=== PATIENT | male | born 1995 | race Caucasian/White ===

== ENCOUNTER 2017-07-25 00:42 | Observation (INO) | payer OTHER ==
[~2017-07-25] VITALS: Ht 190.5 cm; Wt 92.1 kg
--- NOTE | 2017-07-25 00:44 | ER Report ---
History and Physical Time Seen By MD: 00:43 HPI/ROS CHIEF COMPLAINT: Abdominal pain HISTORY OF PRESENT ILLNESS: Patient is a 21-year-old male with no significant or contributory past medical history presents to the emergency department with worsening left upper quadrant abdominal pain that began around 4 PM this afternoon. Patient denies any traumatic injury does report nausea without emesis or diarrhea. No known ill contacts. Patient has no prior surgical interventions of the abdomen. Her crampy that waxes and wanes in intensity but never completely resolves. Current pain level is 10 out of 10 in intensity without palliative or provoking features. Patient denies ever having similar episodes in the past. Reports having normal bowel movements. REVIEW OF SYSTEMS: Constitutional: No fever, no chills. Eyes: No discharge. ENT: No sore throat. Cardiovascular: No chest pain, no palpitations. Respiratory: No cough, no shortness of breath. Gastrointestinal: abdominal pain; nausea without vomiting Genitourinary: No hematuria. Musculoskeletal: No back pain. Skin: No rashes. Neurological: No headache. Allergies: Coded Allergies: No Known Drug Allergies (Unverified , 07/25/17) Home Meds No Active Prescriptions or Reported Meds Constitutional Vital Sign - Last 24 Hours 07/25/17 07/25/17 07/25/17 07/25/17 00:51 00:52 01:00 01:15 Temp 97.6 Pulse 91 88 Resp 22 B/P (MAP) 149/99 (116) 149/99 Pulse Ox 100 99 100 O2 Delivery Room Air 07/25/17 07/25/17 07/25/17 07/25/17 01:32 01:45 02:15 02:30 Pulse 76 74 B/P (MAP) 134/87 (103) 129/79 (96) Pulse Ox 95 97 96 07/25/17 02:58 B/P (MAP) 135/89 (104) Physical Exam General Appearance: The patient is alert, has no immediate need for airway protection and no signs of toxicity. Eyes: Pupils equal and round no pallor or injection. ENT, Mouth: Mucous membranes are moist. Respiratory: There are no retractions, lungs are clear to auscultation. Cardiovascular: Regular rate and rhythm. Gastrointestinal: Abdomen is soft and non tender, no masses, bowel sounds normal. Neurological: awake, alert, GCS-15 Skin: Warm and dry, no rashes. Musculoskeletal: Neck is supple non tender. Extremities are nontender, nonswollen and have full range of motion. Medical Decision Making Data Points Result Diagram: 07/25/17 0053 07/25/17 0053 Laboratory Hematology Test 07/25/17 00:48 07/25/17 00:53 Urine Color Yellow Urine Clarity Clear Urine pH 6.0 pH (4.8-9.5) Urine Specific [place] 1.019 Urine Protein Negative mg/dL (NEGATIVE) Urine Glucose (UA) Negative mg/dL (NEGATIVE) Urine Ketones Trace mg/dL (NEGATIVE) Urine Blood Small (NEGATIVE) Urine Nitrite Negative (NEGATIVE) Urine Bilirubin Negative (NEGATIVE) Urine Urobilinogen Negative mg/dL (0.2-1.9) Urine Leukocyte Esterase Negative (NEGATIVE) Urine RBC None /HPF (0-2/HPF) Urine WBC <1 /HPF (0-5/HPF) Urine Squamous Epithelial Cells None /LPF (</=FEW) Urine Bacteria Negative /HPF (NONE-FEW) Urine Mucus None /HPF (NONE-FEW) Red Blood Count 6.22 M/uL (4.00-5.60) Mean Corpuscular Volume 85.9 fL (80.0-96.0) Mean Corpuscular Hemoglobin 30.2 pg (26.0-33.0) Mean Corpuscular Hemoglobin Concent 35.2 g/dL (32.0-36.0) Red Cell Distribution Width 12.7 % (11.5-14.5) Mean Platelet Volume 7.7 fL (7.2-11.1) Neutrophils (%) (Auto) 72.8 % (39.4-72.5) Lymphocytes (%) (Auto) 17.7 % (17.6-49.6) Monocytes (%) (Auto) 8.2 % (4.1-12.4) Eosinophils (%) (Auto) 0.8 % (0.4-6.7) Basophils (%) (Auto) 0.5 % (0.3-1.4) Nucleated RBC Relative Count (auto) 0.0 /100WBC Neutrophils # (Auto) 13.7 K/uL (2.0-7.4) Lymphocytes # (Auto) 3.3 K/uL (1.3-3.6) Monocytes # (Auto) 1.5 K/uL (0.3-1.0) Eosinophils # (Auto) 0.2 K/uL (0.0-0.5) Basophils # (Auto) 0.1 K/uL (0.0-0.1) Nucleated RBC Absolute Count (auto) 0.01 K/uL Sodium Level 138 mmol/L (137-145) Potassium Level 3.4 mmol/L (3.5-5.0) Chloride Level 100 mmol/L (98-107) Carbon Dioxide Level 23 mmol/L (22-30) Blood Urea Nitrogen 17 mg/dl (9-21) Creatinine 1.00 mg/dl (0.66-1.25) Glomerular Filtration Rate Calc > 60.0 Random Glucose 129 mg/dl (75-110) Calcium Level 9.9 mg/dl (8.4-10.2) Total Bilirubin 1.0 mg/dl (0.2-1.3) Aspartate Amino Transf (AST/SGOT) 31 U/L (0-35) Alanine Aminotransferase (ALT/SGPT) 37 U/L (0-56) Alkaline Phosphatase 73 U/L (0-126) Total Protein 8.6 gm/dl (6.3-8.2) Albumin 4.9 g/dl (3.5-5.0) Lipase 51 U/L (23-300) Chemistry Test 07/25/17 00:48 07/25/17 00:53 Urine Color Yellow Urine Clarity Clear Urine pH 6.0 pH (4.8-9.5) Urine Specific [place] 1.019 Urine Protein Negative mg/dL (NEGATIVE) Urine Glucose (UA) Negative mg/dL (NEGATIVE) Urine Ketones Trace mg/dL (NEGATIVE) Urine Blood Small (NEGATIVE) Urine Nitrite Negative (NEGATIVE) Urine Bilirubin Negative (NEGATIVE) Urine Urobilinogen Negative mg/dL (0.2-1.9) Urine Leukocyte Esterase Negative (NEGATIVE) Urine RBC None /HPF (0-2/HPF) Urine WBC <1 /HPF (0-5/HPF) Urine Squamous Epithelial Cells None /LPF (</=FEW) Urine Bacteria Negative /HPF (NONE-FEW) Urine Mucus None /HPF (NONE-FEW) White Blood Count 18.8 k/uL (4.5-11.0) Red Blood Count 6.22 M/uL (4.00-5.60) Hemoglobin 18.8 g/dL (14.0-18.0) Hematocrit 53.4 % (42.0-52.0) Mean Corpuscular Volume 85.9 fL (80.0-96.0) Mean Corpuscular Hemoglobin 30.2 pg (26.0-33.0) Mean Corpuscular Hemoglobin Concent 35.2 g/dL (32.0-36.0) Red Cell Distribution Width 12.7 % (11.5-14.5) Platelet Count 298 K/uL (150-450) Mean Platelet Volume 7.7 fL (7.2-11.1) Neutrophils (%) (Auto) 72.8 % (39.4-72.5) Lymphocytes (%) (Auto) 17.7 % (17.6-49.6) Monocytes (%) (Auto) 8.2 % (4.1-12.4) Eosinophils (%) (Auto) 0.8 % (0.4-6.7) Basophils (%) (Auto) 0.5 % (0.3-1.4) Nucleated RBC Relative Count (auto) 0.0 /100WBC Neutrophils # (Auto) 13.7 K/uL (2.0-7.4) Lymphocytes # (Auto) 3.3 K/uL (1.3-3.6) Monocytes # (Auto) 1.5 K/uL (0.3-1.0) Eosinophils # (Auto) 0.2 K/uL (0.0-0.5) Basophils # (Auto) 0.1 K/uL (0.0-0.1) Nucleated RBC Absolute Count (auto) 0.01 K/uL Glomerular Filtration Rate Calc > 60.0 Calcium Level 9.9 mg/dl (8.4-10.2) Total Bilirubin 1.0 mg/dl (0.2-1.3) Aspartate Amino Transf (AST/SGOT) 31 U/L (0-35) Alanine Aminotransferase (ALT/SGPT) 37 U/L (0-56) Alkaline Phosphatase 73 U/L (0-126) Total Protein 8.6 gm/dl (6.3-8.2) Albumin 4.9 g/dl (3.5-5.0) Lipase 51 U/L (23-300) Urinalysis Test 07/25/17 00:48 Urine Color Yellow Urine Clarity Clear Urine pH 6.0 pH (4.8-9.5) Urine Specific [place] 1.019 Urine Protein Negative mg/dL (NEGATIVE) Urine Glucose (UA) Negative mg/dL (NEGATIVE) Urine Ketones Trace mg/dL (NEGATIVE) Urine Blood Small (NEGATIVE) Urine Nitrite Negative (NEGATIVE) Urine Bilirubin Negative (NEGATIVE) Urine Urobilinogen Negative mg/dL (0.2-1.9) Urine Leukocyte Esterase Negative (NEGATIVE) Urine RBC None /HPF (0-2/HPF) Urine WBC <1 /HPF (0-5/HPF) Urine Squamous Epithelial Cells None /LPF (</=FEW) Urine Bacteria Negative /HPF (NONE-FEW) Urine Mucus None /HPF (NONE-FEW) EKG/Imaging Imaging V: [id number] EXAM DATE: ORDERING PHYSICIAN: STEPAN NELSON TECHNOLOGIST: Location: [facility] Patient: Bertrand Kaplan : 1995 Visit/Account:[id number] Date of Sevice: 07/25/2017 ABDOMEN/PELVIS WITH CONTRAST COMPARISONS: None. ADDITIONAL PERTINENT HISTORY: Left upper quadrant pain TECHNIQUE: Multiple axial images were obtained from the lung bases through the lesser trochanters before and after the IV administration of IV contrast. One of the following dose optimization techniques was utilized in the performance of this exam: Automated exposure control; adjustment of the mA and/or kV according to the patient's size; or use of an iterative reconstruction technique. Specific details can be referenced in the facility's radiology CT exam operational policy. CONTRAST: 75 ml of Isovue-370 FINDINGS: Lung bases: Negative. Free air and free fluid: Small amount of free fluid within the pelvis. Liver: Negative. Spleen: Negative. Kidneys, ureters and urinary bladder: Negative. Adrenal glands: Negative. Pancreas: Negative. Gallbladder: Negative. Bowel and mesentery: There is an abnormal appearing appendix in the right lower quadrant with the appendix measuring up to 1.5 cm. The appendix is fluid-filled with multiple appendicoliths present. There is mild thickening of the wall with mild enhancement and mild soft tissue stranding about the midportion of the appendix compatible with acute appendicitis.. Pelvic contents: Negative Lymph node assessment: Negative. Retroperitoneum: Negative. Abdominal vasculature: Negative. Surrounding soft tissues: Negative. 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 Scattered intervertebral disc herniations involving the upper lumbar spine. No acute appearing bony abnormalities. IMPRESSION: 1. Findings of acute appendicitis with dilatation of the appendiceal lumen with appendicoliths present with mild thickening of the wall of the appendix and mild soft tissue stranding around the appendix. Results were discussed with STEPAN NELSON at 07/25/2017 2:31 AM. Report Dictated By: Edward Hardin MD at 07/25/2017 2:23 AM Report E-Signed By: Edward Hardin MD at 07/25/2017 2:31 AM WSN:[id number] ED Course/Re-evaluation Clinical Indication for ER IV: Hydration, IV Access ED Course 07/25/2017 1:50:50 am patient with fairly severe crampy left upper quadrant abdominal pain without radiation. No CVA tenderness or flank pain no radiation to the groin or to the testicle. Patient appears to be hyperventilating secondary to discomfort. Patient had been given 1 mg of IV Ativan along with 1 L normal saline. Patient reports that he is feeling sleepy and has no discomfort whatsoever. X-ray of the abdomen shows diffuse colonic stool and gas. No evidence of obstruction. White count is 18,000 which could represent de- margination secondary to pain however this could also represent an acute process. Plan this time will be to continue observation we will order a CT scan with IV contrast. Decision to Disposition Date: Jul 25, 2017 Decision to Disposition Time: 02:49 Depart Departure Latest Vital Signs Vital Signs Date Time Temp Pulse Resp B/P (MAP) Pulse Ox O2 Delivery O2 Flow Rate FiO2 07/25/17 02:58 135/89 (104) 07/25/17 02:30 74 96 07/25/17 00:52 97.6 22 Room Air Impression: Primary Impression: Acute appendicitis Condition: Improved Disposition: Admitted from ER (to Dr Marino) New Scripts No Active Prescriptions or Reported Meds Problem Qualifiers Primary Impression: Acute appendicitis Acute appendicitis type: unspecified acute appendicitis type Qualified Codes : K35.80 - Unspecified acute appendicitis STEPAN NELSON MD Jul 25, 2017 00:44
[2017-07-25] MEDS ORDERED: NS(*) 0.9% 1000 ML BAG 1,000 ML IV ONE (01:04)
[2017-07-25] MEDS ORDERED: LORazepam 1 MG TAB PO ONE ×2 (01:05)
[2017-07-25] MEDS ORDERED: ONDANSETRON 4 MG/2 ML VIAL IVP ONE (01:05)
[2017-07-25] MEDS ORDERED: LORazepam 2 MG/ML VIAL IVP ONE (01:05)
[2017-07-25 01:21] LABS: PLATELET COUNT, AUTOMATED 298 K/uL (150-450)
[2017-07-25] MEDS ORDERED: IOPAMIDOL 76% 75 ML INFUS BTL 75 ML ONE (01:40)
[2017-07-25] MEDS ORDERED: NS 0.9% 50 ML VIAL 50 ML ONE (01:40)
--- NOTE | 2017-07-25 01:54 | RADIOLOGY IMAGING REPORT ---
FACILITY: PATIENT NAME: Bertrand Kaplan : 1995 MR: [id number] V: [id number] EXAM DATE: ORDERING PHYSICIAN: STEPAN NELSON TECHNOLOGIST: [place] [facility] [place]: Bertrand Kaplan : 1995 Visit/Account:[id number] Date of Sevice: 07/25/2017 OBSTRUCTION SERIES: Indication: Lower quadrant abdominal pain. Technique: Supine and erect views of the abdomen and a frontal view of the chest were obtained. Comparison: None. Findings: There is a large amount of stool in the proximal colon. There is modest stool in the distal colon. There are no signs of obstruction. There is no evidence of free air. The skeletal and soft ti ssue structures appear unremarkable. The chest film demonstrates well-expanded and clear lungs. There is no evidence of parenchymal or ple ural abnormalities. The heart and mediastinal contours are within normal limits. IMPRESSION: There is a large amount of stool in the proximal colon. There is no evidence of obstructi on or free air. Report Dictated By: Magdy Acosta MD at 07/25/2017 1:46 AM Report E-Signed By: Magdy Acosta MD at 07/25/2017 1:49 AM WSN:[id number]
--- NOTE | 2017-07-25 02:36 | RADIOLOGY IMAGING REPORT ---
FACILITY: [facility] PATIENT NAME: Bertrand Kaplan : 1995 MR: [id number] V: [id number] EXAM DATE: ORDERING PHYSICIAN: STEPAN NELSON TECHNOLOGIST: Location: [facility] Patient: Bertrand Kaplan : 1995 Visit/Account:[id number] Date of Sevice: 07/25/2017 ABDOMEN/PELVIS WITH CONTRAST COMPARISONS: None. ADDITIONAL PERTINENT HISTORY: Left upper quadrant pain TECHNIQUE: Multiple axial images were obtained from the lung bases through the lesser trochanters bef ore and after the IV administration of IV contrast. One of the following dose optimization technique s was utilized in the performance of this exam: Automated exposure control; adjustment of the mA and/ or kV according to the patient's size; or use of an iterative reconstruction technique. Specific de tails can be referenced in the facility's radiology CT exam operational policy. CONTRAST: 75 ml of Isovue-370 FINDINGS: Lung bases: Negative. Free air and free fluid: Small amount of free fluid within the pelvis. Liver: Negative. Spleen: Negative. Kidneys, ureters and urinary bladder: Negative. Adrenal glands: Negative. Pancreas: Negative. Gallbladder: Negative. Bowel and mesentery: There is an abnormal appearing appendix in the right lower quadrant with the martin endix measuring up to 1.5 cm. The appendix is fluid-filled with multiple appendicoliths present. Ther e is mild thickening of the wall with mild enhancement and mild soft tissue stranding about the midpo rtion of the appendix compatible with acute appendicitis.. Pelvic contents: Negative Lymph node assessment: Negative. Retroperitoneum: Negative. Abdominal vasculature: Negative. Surrounding soft tissues: Negative. 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 Scattered intervertebral disc herniations involving the upper lumbar spine. No acute appeari ng bony abnormalities. IMPRESSION: 1. Findings of acute appendicitis with dilatation of the appendiceal lumen with appendicoliths presen t with mild thickening of the wall of the appendix and mild soft tissue stranding around the appendix . Results were discussed with STEPAN NELSON at 07/25/2017 2:31 AM. Report Dictated By: Edward Hardin MD at 07/25/2017 2:23 AM Report E-Signed By: Edward Hardin MD at 07/25/2017 2:31 AM WSN:[id number]
[2017-07-25] MEDS ORDERED: PIPERACILLIN/TAZO*3.375GM VIAL 3.375 GM in NS(*) 0.9% 100 ML ADDVANT BAG 100 ML IVPB ONE (02:45)
[2017-07-25] MEDS ORDERED: MORPHINE SULFATE 30 MG PCA IV PRN (02:48)
[2017-07-25] MEDS ORDERED: NALOXONE HCL 0.4 MG/ML VIAL IVP PRN (02:48)
[2017-07-25 03:24] VITALS: BP 131/75
[2017-07-25] MEDS ORDERED: ONDANSETRON 4 MG/2 ML VIAL IVP PRN ×2 (03:40→06:20)
[2017-07-25] MEDS ORDERED: D5 1/2 NS(*) 1000 ML BAG 1,000 ML IV PRN (03:40)
[2017-07-25] MEDS ORDERED: FAMOTIDINE(*) 20MG/50ML PREMIX 50 ML IVPB ONE (05:20)
[2017-07-25] MEDS ORDERED: NORMOSOL R SOLN(*) 1000 ML BAG 1,000 ML IV ONE (05:20)
--- NOTE | 2017-07-25 05:21 | General Surgery 1 H&P ---
History of Present Illness Chief Complaint abdominal pain History of Present Illness 21 yo healthy male presents with one day history of abdominal pain. it was mainly in the left upper quadrant. it was quite severe. no nausea or emesis. no change in bms no urinary complaints. sen in ed wbc elevated to 18,000. ct suggest appendicitis. pain now in right lower quadrant. History Other Past Surgeries: wisdom teeth Home Meds No Active Prescriptions or Reported Meds Allergies: Coded Allergies: No Known Drug Allergies (Unverified , 07/25/17) Family History: Patient reports no known family medical history. Review of Systems History of Hypertension?: No History of Diabetes?: No History of DVT?: No Obstructive Sleep Apnea?: No History of Liver Disease?: No History of Kidney Disease?: No Respiratory: Denies Shortness of Breath, Denies Other Cardiovascular: Denies Chest Pain, Denies Other : Denies Dysuria, Denies Other Exam Vital Signs Date Time Temp Pulse Resp B/P (MAP) Pulse Ox O2 Delivery O2 Flow Rate FiO2 07/25/17 03:28 93 Nasal Cannula 1.0 07/25/17 03:24 98.6 81 16 131/75 (93) General Appearance: Alert, Awake, No Acute Distress Cardiovascular: Regular Rate and Rhythm Respiratory: Clear to Auscultation GI: Other (soft tender in the right lower quadrant to deep palpation) Medical Decision Making Data Points Result Diagram: 07/25/17 0053 07/25/17 0053 Assessment and Plan Problems: (1) Acute appendicitis Status: Acute Assessment & Plan: laparoscopic appendectomy, discussed the procedure complications and recovery. Copies to: NIKKI MENA MD Venous Thromboembolism Antithrombotics Is Pt On Any Antithrombotics?: No Problem Qualifiers (1) Acute appendicitis: Acute appendicitis type: unspecified acute appendicitis type Qualified Codes: K35.80 - Unspecified acute appendicitis NIKKI MENA MD Jul 25, 2017 05:21
[2017-07-25] MEDS ORDERED: fentaNYL CITR 100 MCG/2 ML AMP ONE (05:46)
[2017-07-25] MEDS ORDERED: PROPOFOL EMUL(*) 10MG/ML 20 ML 20 ML ONE (05:46)
[2017-07-25] MEDS ORDERED: ONDANSETRON 4 MG/2 ML VIAL ONE (05:46)
[2017-07-25] MEDS ORDERED: METOCLOPRAMIDE 10 MG/2 ML SDV ONE (05:46)
[2017-07-25] MEDS ORDERED: LIDOCAINE MPF 1% 5 ML VIAL ONE (05:46)
[2017-07-25] MEDS ORDERED: DEXAMETHASONE SOD 4 MG/ML VIAL ONE (05:46)
[2017-07-25] MEDS ORDERED: SUGAMMADEX SOD 200 MG/2 ML SDV ONE (05:49)
[2017-07-25] MEDS ORDERED: NS(*) 0.9% 1000 ML BAG 1,000 ML IV PRN (06:19)
--- NOTE | 2017-07-25 06:19 | Post Operative Progress Note ---
Post Operative Progress Note Date: Jul 25, 2017 Time: 06:56 Surgeon: rea Anesthesia: dr damon Pre-Op Diagnosis: appendicitis Post-Op Diagnosis: same Procedure(s): NIKKI Wallace MD Jul 25, 2017 06:19
[2017-07-25] MEDS ORDERED: APAP/HYDROCODONE 325/5 TAB PO PRN (06:20)
[2017-07-25] MEDS ORDERED: ROCURONIUM BROM 10 MG/ML 5 ML ONE (06:30)
[2017-07-25] MEDS ORDERED: KETOROLAC 30 MG/ML VIAL ONE (06:45)
[2017-07-25 07:56] VITALS: BP 122/62
[2017-07-25] MEDS ORDERED: PIPERACILLIN/TAZO*3.375GM VIAL 3.375 GM in NS(*) 0.9% 100 ML ADDVANT BAG 100 ML IVPB SCH (09:00)
[2017-07-25 10:43] VITALS: Ht 190.5 cm; Wt 92.1 kg
[2017-07-25] MEDS ORDERED: KET10 PO (10:50)
[2017-07-25] MEDS ORDERED: HYDR-4309 PO (10:50)
--- NOTE | 2017-07-25 10:52 | Short(Outpt) Discharge Summary ---
Discharge Summary Reason for Hosp/Final Diag: (1) Acute appendicitis Status: Acute Hospital Course & Plan: laparoscopic appendectomy, discussed the procedure complications and recovery. 07/25/17 doing well home today Departure Discharge to: Home Discharge Instructions Home Meds Active Scripts Hydrocodone Bit/Acetaminophen (NORCO 5-325 TABLET) 1 Each Tablet, 1 EACH PO Q4H Y for PAIN, #30 TAB Prov:NIKKI MENA MD 07/25/17 Ketorolac Tromethamine (KETOROLAC TROMETHAMINE) 10 Mg Tab, 10 MG PO Q6H, #20 TAB Prov:NIKKI MENA MD 07/25/17 Diet: Regular Activity: As Tolerated Special Instructions: ice to incision for 48 hours remove bandage and shower saturday call if any problems. [phone] Problem Qualifiers (1) Acute appendicitis: Acute appendicitis type: unspecified acute appendicitis type Qualified Codes: K35.80 - Unspecified acute appendicitis NIKKI MENA MD Jul 25, 2017 10:52
[2017-07-25] MEDS ORDERED: KETOROLAC 30 MG/ML VIAL IVP SCH (12:00)
--- NOTE | 2017-07-25 14:24 | OPERATIVE REPORT 1 ---
EVENT DATE: July 25, 2017 SURGEON: Joseluis Marino MD ANESTHESIOLOGIST: Stanislav Vazquez MD ANESTHESIA: General. PREOPERATIVE DIAGNOSIS Appendicitis. POSTOPERATIVE DIAGNOSIS Appendicitis. PROCEDURE PERFORMED Laparoscopic appendectomy. DESCRIPTION OF PROCEDURE The patient was placed in the supine position and given general anesthetic. His abdomen was prepped and draped in a sterile fashion. The skin was anesthetized with 0.2% ropivacaine. A small incision was made above the umbilicus. A Veress needle was inserted. The abdomen was insufflated with CO2. A 5 mm port was placed under direct vision. We then placed a 5 mm in the left lower quadrant and a 10 mm in the suprapubic region under direct vision. The patient was placed in Trendelenburg and rotated to the left. We entered the right lower quadrant to identify the enlarged, swollen appendix. The mesoappendix was divided with a Harmonic scalpel to the appendiceal-cecal junction. We then placed an 0 chromic Endoloop at the appendiceal-cecal junction, placed 2-0 PDS Endoloop distal to this, cut between the two PDS Endoloops, placed the appendix in an Endopouch, and removed it from the field. We inspected for bleeding. We had perfect hemostasis. The ports were removed under direct vision. No bleeding was noted. The skin was closed with interrupted 4-0 Maxon. Steri-Strips and an Airstrip were placed. NICK
== END 2017-07-25 10:49 | disposition home or self-care (01) ==
LOC: ER 01:16 → MED 03:04 → INTOOBSV 03:04
PROVIDERS: ADMIT Surgery; ATTEND Surgery
DX: K35.80 Unspecified acute appendicitis (principal)
CPT/HCPCS: 44970; 74022; 81001; 83690; 85025; 88304; 96361; 96365; 96375; 99285; G0378; J1100; J1885; J2001; J2060; J2405; J2543; J2704; J2765; J3010; J7030; J7050; Q9967; 74177; 82040; 82247; 82310; 82374; 82435; 82565; 82947; 84075; 84132; 84155; 84295; 84450; 84460; 84520